=== PATIENT | female | born 1945 | race African-American/Black ===

== ENCOUNTER 2017-03-15 13:00 | Outpatient (RCR) | payer OTHER | END 2017-03-21 | disposition home or self-care (01) | LOC: PTY 13:00 | DX: M54.5 Low back pain (principal); G89.29 Other chronic pain; M48.061 Spinal stenosis, lumbar region without neurogenic claudication; M43.10 Spondylolisthesis, site unspecified; I10 Essential (primary) hypertension ==

== ENCOUNTER 2017-04-05 13:00 | Outpatient (RCR) | payer OTHER | END 2017-04-21 | disposition home or self-care (01) | LOC: PTY 13:00 | DX: M54.5 Low back pain (principal); G89.29 Other chronic pain; M48.061 Spinal stenosis, lumbar region without neurogenic claudication; M43.10 Spondylolisthesis, site unspecified; I10 Essential (primary) hypertension ==

== ENCOUNTER 2017-05-16 13:00 | Outpatient (RCR) | payer OTHER | END 2017-05-22 | disposition home or self-care (01) | LOC: PTY 13:00 | DX: M54.5 Low back pain (principal); G89.29 Other chronic pain; M48.061 Spinal stenosis, lumbar region without neurogenic claudication; M43.10 Spondylolisthesis, site unspecified ==